=== PATIENT | male | born 1960 | race Asian ===

== ENCOUNTER → 2021-07-17 | Outpatient (CLI) | payer OTHER | LOC: CT 08:00 | DX: K40.90 Unilateral inguinal hernia, without obstruction or gangrene, not specified as recurrent (principal) | CPT/HCPCS: 72192 ==

== ENCOUNTER 2021-08-17 20:47 | Emergency (ER) | payer OTHER | END 2021-08-17 22:49 | disposition home or self-care (01) | LOC: ER1 20:47 | DX: T83.490A Other mechanical complication of implanted penile prosthesis, initial encounter (principal); R33.9 Retention of urine, unspecified; Z85.46 Personal history of malignant neoplasm of prostate; Y83.8 Other surgical procedures as the cause of abnormal reaction of the patient, or of later complication, without mention of misadventure at the time of the procedure | CPT/HCPCS: 51702; 96374; 96375; 99283; J1170; J2270; J2405 ==